=== PATIENT | female | born 1975 ===

== ENCOUNTER 2020-07-13 13:03 | Outpatient (REF) | payer OTHER, SELFPAY | END 2020-07-13 13:04 | disposition home or self-care (01) | LOC: HO.NEURO 13:03 | PROVIDERS: PCP Nurse Practitioner Family; Visit Provider Psychiatry & Neurology Neurology | DX: Z13.89 Encounter for screening for other disorder (principal) ==

== ENCOUNTER 2020-08-10 12:24 | Outpatient (REF) | payer OTHER, SELFPAY ==
--- NOTE | 2020-08-10 12:36 | EEG_ITS ---
The waking background activity consists of a well-defined moderate voltage symmetrical alpha of 10 hertz, intermixed with low voltage fast frequencies anteriorly. Drowsiness is characterized by diffuse theta slowing. 6 hours into this study, all electrodes are pulled off. The patient claims that she had a seizure and the leads came off. No paroxysmal discharges seen leading up to the point where the leads came off. IMPRESSION: This limited 24-hour ambulatory EEG of 6 hours is within normal limits. MD CARTER Aparicio/MARIAM / [id number]
== END 2020-08-10 12:25 | disposition home or self-care (01) ==
LOC: HO.NEURO 12:24
PROVIDERS: Visit Provider Psychiatry & Neurology Neurology
DX: R56.9 Unspecified convulsions (principal)
CPT/HCPCS: 95708; 95957